=== PATIENT | male | born 1945 | race Caucasian/White ===

== ENCOUNTER 2017-08-30 16:16 | Emergency (ER) | payer MEDICARE, OTHER ==
[2017-08-30 16:55] VITALS: TEMP 98.2
--- NOTE | 2017-08-30 17:23 | ED.PDOC ---
History of Present Illness - General Chief Complaint: General Stated Complaint: Bilateral LLE Edema; denies trauma Time Seen by Provider: 08/30/17 17:21 Source: patient - History of Present Illness Initial Comments: Markos Hill 72 y/o male stated that both his legs are swelled for the last 3 days has history of high blood pressure chronic leg swelling but today got more swelled up denies SOB,chest pains,or fever. Timing/Duration: other - 3 days Severity: moderate Improving Factors: nothing Worsening Factors: nothing Associated Symptoms: other - see hpi Allergies/Adverse Reactions: Allergies NO KNOWN ALLERGY Allergy (Verified 08/30/17 16:55) Home Medications: Ambulatory Orders Furosemide [Lasix] 20 mg PO BID #30 tab 08/30/17 Hctz Unknown Dose 08/30/17 Lisinopril 40 mg PO DAILY@0700 #30 tab 08/30/17 Lisinopril Unknown Dose 08/30/17 Potassium Chloride Tab [K-Dur] 20 meq PO DAILY #30 tab 08/30/17 Review of Systems - Review of Systems Constitutional: States: no symptoms reported EENTM: States: no symptoms reported Respiratory: States: no symptoms reported Cardiology: States: see HPI, edema Gastrointestinal/Abdominal: States: no symptoms reported Genitourinary: States: no symptoms reported Musculoskeletal: States: no symptoms reported Skin: States: no symptoms reported Past Medical History (General) - Patient Medical History Hx Stroke: No Hx Congestive Heart Failure: No Hx Hypertension: Yes Hx Diabetes: No Hx Cancer: No Hx Hepatitis C: No Surgical History: appendectomy, other - hemorroidectomy - Social History Hx Tobacco Use: Yes Hx Chewing Tobacco Use: No Hx Alcohol Use: Yes - Occas Hx Substance Use: No Hx Substance Use Treatment: No Hx Depression: No Feels Threatened In Home Enviroment: No Feels Threatened In a Relationship: No Hx Physical Abuse: No Hx Emotional Abuse: No Hx Suspected Abuse: No - Activities of Daily Living Grooming Ability: Independent Eating (Feeding) Ability: Independent Toileting Ability: Independent Family Medical History - Family History Grandparents Family History: Unknown Hx Family;Other: ABDOMINAL AORTIC ANEURYSM-3.4 cm recently checked followed up every year Mother Living Status: Hx Family;Other: ABDOMINAL AORTIC ANEURYSM Physical Exam - Physical Exam General Appearance: Alert, Comfortable, No apparent distress Eye Exam: bilateral normal Ears, Nose, Throat: hearing grossly normal, normal ENT inspection, normal pharynx Neck: full range of motion, supple Respiratory: chest non-tender, no respiratory distress, decreased breath sounds - bases Cardiovascular/Chest: normal peripheral pulses, no murmur, tachycardia Peripheral Pulses: radial,right: 2+, radial,left: 2+, dorsalis pedis,right: 2+, dorsalis pedis,left: 2+ Gastrointestinal/Abdominal: non tender, soft, no organomegaly Back Exam: no vertebral tenderness Extremity: non-tender, no calf tenderness, pedal edema - 2 + bilaterally Neurologic: no motor/sensory deficits, alert, normal mood/affect, oriented x 3 Skin Exam: normal color, warm/dry Lymphatic: no adenopathy Progress - Progress Progress: 08/30/17 19:56 Vital Signs - 8 hr 08/30/17 08/30/17 16:49 17:53 Temperature 98.2 F Pulse Rate [R 111 H 105 H Arm] Respiratory 20 18 Rate Blood Pressure 135/93 142/81 [R Arm] O2 Sat by Pulse 96 96 Oximetry Laboratory Tests 08/30/17 08/30/17 08/30/17 18:10 18:10 18:10 WBC 6.4 RBC 4.35 L Hgb 12.4 L Hct 37.7 L MCV 86.7 MCH 28.5 MCHC 32.8 L RDW 15.4 H Plt Count 411 H MPV 6.3 L Absolute Neuts (auto) 3.90 Absolute Lymphs (auto) 1.90 Absolute Monos (auto) 0.40 Absolute Eos (auto) 0.10 Absolute Basos (auto) 0.10 Neutrophils % 61.9 Lymphocytes % 29.7 Monocytes % 6.1 Eosinophils % 1.4 Basophils % 0.9 D-Dimer, Quantitative 344 H* Sodium 139 Potassium 3.8 Chloride 106 Carbon Dioxide 28 Anion Gap 8.8 L BUN 15 Creatinine 1.00 BUN/Creatinine Ratio 15.0 Random Glucose 88 Serum Osmolality 277.8 Uric Acid Calcium 8.9 Total Bilirubin 0.3 AST 31 ALT 23 Alkaline Phosphatase 69 Troponin I B-Natriuretic Peptide Serum Total Protein 7.1 Albumin 3.3 Globulin 3.8 H Albumin/Globulin Ratio 0.9 L 08/30/17 08/30/17 18:10 19:00 WBC RBC Hgb Hct MCV MCH MCHC RDW Plt Count MPV Absolute Neuts (auto) Absolute Lymphs (auto) Absolute Monos (auto) Absolute Eos (auto) Absolute Basos (auto) Neutrophils % Lymphocytes % Monocytes % Eosinophils % Basophils % D-Dimer, Quantitative Sodium Potassium Chloride Carbon Dioxide Anion Gap BUN Creatinine BUN/Creatinine Ratio Random Glucose Serum Osmolality Uric Acid 6.5 Calcium Total Bilirubin AST ALT Alkaline Phosphatase Troponin I 0.05 B-Natriuretic Peptide 1800.0 H* Serum Total Protein Albumin Globulin Albumin/Globulin Ratio - EKG/XRAY/CT EKG: Sinus, Tachy, nonspecific ST T wave Chg Comments: heart rate 106;possible left atrial enlargement Departure - Departure Clinical Impression: Pedal edema CHF (congestive heart failure) Qualifiers: Congestive heart failure type: unspecified congestive heart failure type Congestive heart failure chronicity: unspecified congestive heart failure chronicity Qualified Code(s): I50.9 - Heart failure, unspecified Disposition: Discharge to Home or Self Care Condition: Fair Departure Forms: ED Discharge - Pt. Copy, Patient Portal Self Enrollment Instructions: DI for Heart Failure, How to [place] With Heart Failure, Why It Is Important to Quit Smoking If You Have Heart Failure, Heart Failure Prescriptions: Furosemide [Lasix] 20 mg PO BID #30 tab Lisinopril 40 mg PO DAILY@0700 #30 tab Potassium Chloride Tab [K-Dur] 20 meq PO DAILY #30 tab Home Medications: Ambulatory Orders Furosemide [Lasix] 20 mg PO BID #30 tab 08/30/17 Hctz Unknown Dose 08/30/17 Lisinopril 40 mg PO DAILY@0700 #30 tab 08/30/17 Lisinopril Unknown Dose 08/30/17 Potassium Chloride Tab [K-Dur] 20 meq PO DAILY #30 tab 08/30/17 Additional Instructions: NEED TO FOLLOW UP [facility] CALL FOR APPOINTMENT TOMORROW AM-2016
--- NOTE | 2017-08-30 19:20 | US ---
PROCEDURE: Venous,Lower Extremity RT CLINICAL HISTORY and INDICATION: Right lower extremity swelling COMPARISON: None. TECHNIQUE: Goncalves scale imaging with duplex interrogation of the right and left lower extremity venous system was performed and multiple static images were obtained. FINDINGS: Utilizing compression and augmentation, there is no deep venous thrombus in the common femoral, superficial femoral or popliteal veins. The posterior tibial and deep peroneal veins are patent and compressible. . The greater saphenous vein at the saphenofemoral junction is patent and compressible. There is no visualization of any subcutaneous fluid collections. There is no visualization of any fluid collections in the bilateral popliteal fossa. There is no evidence of reactive or pathological lymphadenopathy in the evaluated bilateral lower extremity. IMPRESSION: No deep venous thrombosis of the bilateral lower extremity. Location of Interpretation: [id number] Electronically signed by: Jourdan Em MD 08/30/2017 7:19 PM CDT Workstation: [id number]
--- NOTE | 2017-08-30 19:25 | US ---
PROCEDURE: Venous,Lower Extremity RT CLINICAL HISTORY and INDICATION: Right lower extremity swelling COMPARISON: None. TECHNIQUE: Goncalves scale imaging with duplex interrogation of the right and left lower extremity venous system was performed and multiple static images were obtained. FINDINGS: Utilizing compression and augmentation, there is no deep venous thrombus in the common femoral, superficial femoral or popliteal veins. The posterior tibial and deep peroneal veins are patent and compressible. . The greater saphenous vein at the saphenofemoral junction is patent and compressible. There is no visualization of any subcutaneous fluid collections. There is no visualization of any fluid collections in the bilateral popliteal fossa. There is no evidence of reactive or pathological lymphadenopathy in the evaluated bilateral lower extremity. IMPRESSION: No deep venous thrombosis of the bilateral lower extremity. Location of Interpretation: [id number] Electronically signed by: Jourdan Em MD 08/30/2017 7:19 PM CDT Workstation: [id number]
--- NOTE | 2017-08-30 19:25 | US ---
PROCEDURE: Venous,Lower Extremity RT CLINICAL HISTORY and INDICATION: Right lower extremity swelling COMPARISON: None. TECHNIQUE: Goncalves scale imaging with duplex interrogation of the right and left lower extremity venous system was performed and multiple static images were obtained. FINDINGS: Utilizing compression and augmentation, there is no deep venous thrombus in the common femoral, superficial femoral or popliteal veins. The posterior tibial and deep peroneal veins are patent and compressible. . The greater saphenous vein at the saphenofemoral junction is patent and compressible. There is no visualization of any subcutaneous fluid collections. There is no visualization of any fluid collections in the bilateral popliteal fossa. There is no evidence of reactive or pathological lymphadenopathy in the evaluated bilateral lower extremity. IMPRESSION: No deep venous thrombosis of the bilateral lower extremity. Location of Interpretation: [id number] Electronically signed by: Jourdan Em MD 08/30/2017 7:19 PM CDT Workstation: [id number]
[2017-08-30] MEDS ORDERED: FUROSEMIDE 40 MG TAB PO ONE (19:57)
[2017-08-30] MEDS ORDERED: BUMETANIDE TAB 2 MG TAB PO SCH (20:00)
[2017-08-30 20:22] VITALS: BP 145/92; O2SAT 92
== END 2017-08-30 20:22 | disposition home or self-care (01) ==
LOC: ER 16:16
DX: R60.0 Localized edema (principal); I11.0 Hypertensive heart disease with heart failure; I50.9 Heart failure, unspecified; Z87.891 Personal history of nicotine dependence; Z79.899 Other long term (current) drug therapy

== ENCOUNTER 2018-11-22 15:09 | Inpatient (IN) | payer MEDICARE, OTHER ==
[2018-11-22] MEDS ORDERED: FUROSEMIDE INJ 40 MG/4 ML VIAL IV ONE ×2 (15:35→22:11)
[2018-11-22] MEDS ORDERED: metOLazone 2.5 MG TAB PO ONE ×2 (15:35→22:10)
[2018-11-22] MEDS ORDERED: IPRATROPIUM/ALBUTEROL 3 ML VIAL NEB ONE (15:36)
--- NOTE | 2018-11-22 16:04 | RAD ---
EXAM DESCRIPTION: XR CHEST 2 VIEWS CLINICAL HISTORY: Shortness of breath. Edema COMPARISON: None TECHNIQUE: PA/lateral FINDINGS: Cardiomegaly. Tortuous atherosclerotic aorta. Lungs are hyperinflated related to COPD. Interstitial edema in the mid to lower lung zones with bilateral small pleural effusions blunting the posterior costophrenic angles IMPRESSION: Congestive heart failure with interstitial edema bases and small effusions COPD Electronically signed by: Tenzin Felix MD 11/22/2018 4:03 PM MI[employer]EC[employer] PROFESSOR
--- NOTE | 2018-11-22 17:32 | ED.PDOC ---
History of Present Illness - General Chief Complaint: Respiratory Problem Stated Complaint: SOB, wheezing, cough, ble swelling Time Seen by Provider: 11/22/18 15:11 Source: patient Exam Limitations: no limitations - History of Present Illness Initial Comments: the patient is a 73-year-old male with a history of congestive heart failure presenting with what appears to be another CHF exacerbation. The patient has had 3-5 days of increasing fluid retention in his lower extremities as well as increasing abdominal girth. About 2 days ago he started developing increasing shortness of breath and now he cannot lie back flat without significant shortness of breath. When sitting upright in his oxygen saturations are around 93% however when lying back he does drop down to around 85%. The patient does have significant palpable ascites and 3+ edema to bilateral lower extremities. He does also have some acral cyanosis to his lower extremities which is a long-term problem for him. he has had a runny nose and some mild congestion. His thinks that he might of had a low-grade fever yesterday but they did not check. No fever today. No body aches. No headache. No productive cough. Timing/Duration: other - 3-5 days Severity: moderate Improving Factors: nothing Worsening Factors: nothing Associated Symptoms: cough, malaise, shortness of breath Allergies/Adverse Reactions: Allergies NO KNOWN ALLERGY Allergy (Verified 11/22/18 15:25) Home Medications: Ambulatory Orders Aspirin [Aspirin Adult Low Dose] 81 mg PO DAILY 11/22/18 Atorvastatin Calcium [Lipitor] 20 mg PO DAILY 11/22/18 Carvedilol 12.5 mg PO BID 11/22/18 Furosemide [Lasix] 80 mg PO DAILY 11/22/18 Lisinopril 5 mg PO DAILY 11/22/18 Methocarbamol 500 mg PO BID PRN 11/22/18 Review of Systems - Review of Systems Constitutional: States: malaise EENTM: States: nose congestion Respiratory: States: cough, short of breath, wheezing Cardiology: States: edema Gastrointestinal/Abdominal: States: no symptoms reported Genitourinary: States: no symptoms reported Musculoskeletal: States: no symptoms reported Skin: States: no symptoms reported Neurological: States: no symptoms reported Endocrine: States: no symptoms reported All other Systems: No Change from Baseline Past Medical History (General) - Patient Medical History Hx Stroke: No Hx Congestive Heart Failure: Yes Hx Hypertension: Yes Hx Diabetes: No Hx Cancer: No Hx Hepatitis C: No Surgical History: tonsillectomy - Vaccination History Hx Influenza Vaccination: Yes - 2018 Hx Pneumococcal Vaccination: No - Social History Hx Tobacco Use: Yes Hx Chewing Tobacco Use: No Hx Alcohol Use: Yes - Occas Hx Substance Use: No Hx Substance Use Treatment: No Hx Depression: No Hx Physical Abuse: No Hx Emotional Abuse: No Hx Suspected Abuse: No Family Medical History - Family History Grandparents Family History: Unknown Hx Family;Other: ABDOMINAL AORTIC ANEURYSM-3.4 cm recently checked followed up every year Mother Living Status: Hx Family;Other: ABDOMINAL AORTIC ANEURYSM Physical Exam - Physical Exam General Appearance: Alert, Other - he does have some increased work of breathing Eye Exam: bilateral normal Ears, Nose, Throat: hearing grossly normal, nasal congestion Neck: full range of motion, supple Respiratory: no respiratory distress, accessory muscle use - ild, other - mild bibasilar rales. Scattered wheezing. Cardiovascular/Chest: regular rate, rhythm Peripheral Pulses: radial,right: 2+, radial,left: 2+, dorsalis pedis,right: 1+, dorsalis pedis,left: 1+ Gastrointestinal/Abdominal: soft, other - significant ascites Rectal Exam: deferred Back Exam: normal inspection, no CVA tenderness Extremity: non-tender, normal capillary refill, pedal edema - 3+ to bilateral lower extremities Neurologic: practice clinician II-XII nml as tested, alert, normal mood/affect, oriented x 3 Skin Exam: normal color - with the exception of the acral cyanosis of the feet Comments: Vital Signs - 24 hr 11/22/18 11/22/18 11/22/18 15:16 16:05 16:15 Temperature 98.5 F Pulse Rate 89 Pulse Rate [ 86 84 Left Radial] Respiratory 26 H 20 20 Rate Blood Pressure 116/74 111/73 [Left Arm] O2 Sat by Pulse 93 L 100 97 Oximetry Progress - Progress Progress: 11/22/18 17:36 the patient is a 73-year-old presenting with what appears to be in acute CHF exacerbation. He does also have some COPD and has received a breathing treatment. He has failed outpatient oral therapy for diuresis. He has responded to some IV Lasix and oral metolazone here. he has been placed on oxygen as he does become hypoxic intermittently. He may yet need lower extremity compression to help move off some of the edema. Admit for further care. [facility] - Results/Orders Results/Orders: 11/22/18 15:36 Telemetry .CONTINUOUS 11/22/18 15:45 EKG STAT Laboratory Results - last 24 hr 11/22/18 11/22/18 11/22/18 15:14 15:14 16:30 WBC 6.4 RBC 4.51 L Hgb 11.8 L Hct 37.4 L MCV 82.9 MCH 26.1 L MCHC 31.5 L RDW 16.4 H Plt Count 395 MPV 6.6 L Absolute Neuts (auto) 4.10 Absolute Lymphs (auto) 1.70 Absolute Monos (auto) 0.50 Absolute Eos (auto) 0.00 Absolute Basos (auto) 0.00 Neutrophils % 64.5 Lymphocytes % 26.5 Monocytes % 7.5 Eosinophils % 0.8 L Basophils % 0.7 Sodium 137 Potassium 4.0 Chloride 102 Carbon Dioxide 26 Anion Gap 13.0 BUN 30 H Creatinine 1.54 H BUN/Creatinine Ratio 19.5 Random Glucose 110 H Serum Osmolality 280.6 Calcium 8.6 Total Bilirubin 0.5 AST 93 H ALT 85 H Alkaline Phosphatase 132 H Creatine Kinase 220 H* CK-MB (CK-2) 10.7 H* CK-MB (CK-2) % 4.86 H Troponin I 0.06 H B-Natriuretic Peptide 2090.0 H* Serum Total Protein 7.2 Albumin 3.2 Globulin 4.0 H Albumin/Globulin Ratio 0.8 L Urine Color Yellow Urine Appearance Clear Urine pH 5.5 Ur Specific [place] 1.025 Urine Protein >=300 H Urine Glucose (UA) Negative Urine Ketones Negative Urine Blood Negative Urine Nitrite Negative Urine Bilirubin Negative Urine Urobilinogen 1.0 Ur Leukocyte Esterase Negative Urine RBC 0 Urine WBC 0 Ur Epithelial Cells 0-1 Amorphous Sediment Trace Urine Bacteria 0 chest x-ray is consistent with congestive heart failure showing pleural effus ions. EKG shows a heart rate of 86 bpm there is a normal sinus rhythm. Mild left atrial dilation. Normal axis. Borderline QT interval. EKG is consistent with the EKG from August 2017. No acute ST segment changes immediately concerning for ischemia. Departure - Departure Clinical Impression: Acute exacerbation of congestive heart failure Qualifiers: Heart failure type: unspecified Qualified Code(s): I50.9 - Heart failure, unspecified Disposition: Admit Patient Home Medications: Ambulatory Orders Aspirin [Aspirin Adult Low Dose] 81 mg PO DAILY 11/22/18 Atorvastatin Calcium [Lipitor] 20 mg PO DAILY 11/22/18 Carvedilol 12.5 mg PO BID 11/22/18 Furosemide [Lasix] 80 mg PO DAILY 11/22/18 Lisinopril 5 mg PO DAILY 11/22/18 Methocarbamol 500 mg PO BID PRN 11/22/18 Decision To Admit - Decistion To Admit Decision to Admit Reason: Medical Nature Decision to Admit Date: 11/22/18 Decision to Admit Time: 17:38
--- NOTE | 2018-11-22 18:24 | HP ---
SUPERVISING PHYSICIAN: Nacho العلي MD CHIEF COMPLAINT: Shortness of breath, wheezing, coughing bilateral lower extremity swelling. HISTORY OF PRESENT ILLNESS: Mr. Hill is a 73 year-old male patient who has a history of congestive heart failure. He presented to the Emergency Room today with an exacerbation. He noted over the last 3 to 5 days he has had increasing edema to his lower extremities as well as his abdomen. He also notes about 2 days ago he started having some increasing shortness of breath and unable to lie flat, without any significant shortness of breath. It was noted in the Emergency Room when he was sitting upright, his oxygen saturations were around 93% but when he was lying they would drop down to around 85%. He was denying any chest pain. Laboratory studies showed he had a BNP of 2,090, troponin was slightly bumped at 0.06. Again, the patient was denying chest pains and his EKG completed showed he was in a sinus rhythm at [address] segment changes concerning for ischemic. When compared to an EKG in August 2017, no specific changes. He reports that 2 days ago he started doubling his Lasix, taking up to 160 per day with minimal results His chest x-ray showed congestive heart failure with interstitial edema and small effusions and chronic obstructive pulmonary disease changes. He is a chronic smoker, smokes up to half pack a day, has for well over 60 years. He also notes that he does drink alcohol on a fairly regular occasions, only beer. His labs showed he had a creatinine at 1.54 and review of old charts show that his creatinine is usually around 1.0. Liver functions were also showing elevation of AST, ALT and alkaline phosphatase. Urinalysis showed greater than 300 of protein, otherwise within normal limits. Vital signs on admission, he was mildly tachycardiac at 111, hypertensive with blood pressure of 135/93 but saturation 96% on room air. At rest when lying down, he had desaturation into the mid 80s. He was showing to be afebrile and at that point was given 40 of IV Lasix as well as oral Zaroxolyn. Dr. Barksdale is now requesting that the patient be admitted for acute on chronic exacerbation of congestive heart failure for further cardiac monitoring and evaluation. He is admitted in stable condition. PAST MEDICAL HISTORY: 1. Congestive heart failure first diagnosed in 2016 with no ehrlichiosis available to review on admission. 2. Hypertension. 3. Chronic obstructive pulmonary disease. 4. Triple AAA aneurysm, being followed every 6 months by his primary care physician and reported measures around 3.4 cm. PAST SURGICAL HISTORY: 1. Hemorrhoidectomy. 2. Tonsillectomy and adenoidectomy. CURRENT MEDICATIONS: 1. Methocarbamol 500 mg b.i.d. as needed. 2. Lisinopril 5 mg daily. 3. Lasix 80 mg daily. 4. Carvedilol 12.5 mg b.i.d. 5. Lipitor 20 mg daily. 6. Aspirin 81 mg daily. ALLERGIES: No known drug allergies. FAMILY HISTORY: Father at age 75 from advanced age. Mother from aortic aneurysm at age 69. He has one brother who is healthy. He has a sister who is healthy and he has one son who is healthy. 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 He is an [employer], 3 years, [employer]. He is . He currently lives in [place]. He does note he smokes cigarettes, half-pack a day and has for well over 60 years. He drinks beer on a fairly regular occasion. He denies any illicit drug use. REVIEW OF SYSTEMS: CONSTITUTIONAL: Denies any fevers, chills or unintentional weight loss. HEENT: Positive for nasal congestion, negative for sore throat, earache, vision changes RESPIRATORY: Positive for cough, nonproductive, shortness of breath, wheezing, orthopnea. CARDIOVASCULAR: Positive for worsening peripheral edema and exertional dyspnea and orthopnea. Denies chest pain, syncopal episodes or palpitations. GASTROINTESTINAL: Negative for nausea, vomiting, diarrhea or constipation, abdominal pains. GENITOURINARY: Negative for dysuria, hematuria, polyuria or urinary symptoms. NEUROLOGICAL: Negative for seizures, ataxia, vision changes, dizziness or other neurological symptoms. PHYSICAL EXAMINATION: VITAL SIGNS: Temperature 98.2, pulse 111, blood pressure 135/93, respirations 20, saturation 96% on room air at rest, sitting up on room air there times saturation is down to 85%. Admission weight 90.8 kg. GENERAL: The patient is alert on admission to the medical/surgical floor. The patient appears to be in no acute distress. His is showing some increased work of breathing, especially when talking but he is able to talk in complete sentences. HEENT: Tympanic membranes are clear bilateral. Oropharynx is pink and moist without any lesions. There was notable nasal congestion bilaterally. NECK: Supple with full range of motion. No notable jugular venous distention. CHEST: Lungs notable for bibasilar rales and some scattered wheezing. CARDIOVASCULAR: Regular rate and rhythm without appreciable murmurs, gallops, or rubs. ABDOMEN: Soft, distended with notable ascites but non-tender. Positive bowel sounds. EXTREMITIES: 3+ pedal edema in bilateral lower extremities. NEUROLOGIC: Cranial nerves II through XII grossly intact. Facial features are symmetrical. Extraocular movement was negative. No notable nystagmus. He is alert and oriented x 3. LABORATORY: White count 6,400, hemoglobin 11.8, hematocrit 37.4, platelet count 395,000, differential showed to be without a left shift. Chemistries show normal electrolytes with potassium of 4, sodium 137, BUN 30, creatinine 1.54, calcium 8.6, magnesium 2.0. Liver functions showed normal bilirubin with an elevated AST at 93, ALT of 85, alkaline phosphatase 132. CPK was elevated at 220 with a troponin of 0.06, BNP elevated at 2090. Urinalysis showed greater than 300 protein. MICROBIOLOGY: Influenza A and B by PCR was negative. RADIOLOGY: Chest x-ray, 2-view chest per radiology interpretation shows congestive heart failure with interstitial edema in the bases and small effusions and chronic obstructive pulmonary disease changes. ASSESSMENT: 1. Acute on chronic congestive heart failure exacerbation with concerns for developing pulmonary edema failing to respond to oral diuresis with elevated BNP and increasing peripheral edema. 2. Hypertension. 3. Chronic obstructive pulmonary disease with moderate exacerbation probably due to underlying congestive heart failure with no signs of pneumonia or underlying infection. 4. History of aortic aneurysm that measures 3.4 cm being followed by his primary care physician every 6 months. 5. Chronic nicotine addiction. 6. Renal insufficiency possibly due to aggressive diuresis at home with Lasix versus some aggressive exacerbation from questionable urinary retention. 7. Elevated troponin without any evidence of acute changes on EKG and patient being without any chest pain, probably due to his decreased renal function along with exacerbation of chronic obstructive pulmonary disease. PLAN: The patient is going to be admitted for exacerbation of congestive heart failure for a little more aggressive diuresis. I will give another 40 of Lasix tonight with 5 of Zaroxolyn. Given I am going to diurese him fairly aggressively, I discussed putting a Palomo catheter in and measure his I&Os pretty strict and insure that he is not having any urinary retention. In regards to his renal function and concerns for urinary retention, again will place bladder catheter just to insure he is not having retention. We will go and put him on Lasix 60 b.i.d. for the first 24 hours along with Zaroxolyn in the morning. Will give him some potassium tonight and continue with 40 mg daily. Will put him on DVT prophylaxis per protocol. Will resume his home medications once those have been updated and verified. He is already on an moreno inhibitor and a beta agnes. He does have an echocardiogram that apparently was done at the [facility] which I am not sure if we can get a copy of this but it would be helpful. Also, this admission was approved through the [facility] system. Will anticipate his length of stay to be at least 2 to 3 days and while he is here we will also put him on fluid restriction less than 1500 cc per day. Will hold off on any IV fluids at this point and will monitor his vital signs. Should he show any drop in his blood pressure, he could possibly be developing some intravascular dehydration from aggressive diuresis, certainly we will need to start him on low maintenance fluids. He will be on oxygen and cardiac telemetry. We plan to repeat his troponin in them morning as well but he is not having any complaints of chest pain. I suspect his troponin is from his renal function as well as his exacerbation of congestive heart failure. Until we can transition him to outpatient management, will continue to monitor and treat as needed. #[id number] [facility]
[2018-11-22] MEDS ORDERED: ACETAMINOPHEN 325 MG TAB PO PRN (19:26)
[2018-11-22] MEDS ORDERED: ALBUTEROL SULFATE 2.5 MG/3 ML VIAL NEB PRN (19:26)
[2018-11-22] MEDS ORDERED: SODIUM CHLORIDE 0.9% (FLUSH) 10 ML SYG IV PRN (19:26)
[2018-11-22] MEDS ORDERED: NITROGLYCERIN 0.4 MG 25 EA TAB SL PRN (19:26)
[2018-11-22] MEDS ORDERED: ONDANSETRON INJ 4 MG/2 ML VIAL IV PRN (19:26)
[2018-11-22] MEDS: IPRATROPIUM/ALBUTEROL 3 ML VIAL INH SCH (20:25)
[2018-11-22] MEDS: IV SET AND CAP CHANGE INJ INJ SCH (21:00)
[2018-11-22] MEDS ORDERED: POTASSIUM CHLORIDE 20 MEQ TAB PO ONE (22:12)
[2018-11-22] MEDS ORDERED: NON-FORMULARY MEDICATION 1 EA MIS (Methocarbamol [Methocarbamol] 500 MG) PO PRN (22:13)
[2018-11-22] MEDS: CARVEDILOL 12.5 MG TAB PO SCH (22:30)
[2018-11-22] MEDS: ALPRAZolam 0.25 MG TAB PO PRN (23:58)
--- NOTE | 2018-11-23 07:07 | RAD ---
EXAM DESCRIPTION: Chest,2 Views CLINICAL HISTORY:73 years Male, CHF Comparison: November 22, 2018 FINDINGS: Mild bibasilar opacities and possible small bilateral pleural effusions. Enlarged cardiac silhouette, unchanged. No pneumothorax. No acute osseous abnormality. Soft tissues are unremarkable. IMPRESSION: Unchanged enlarged chronic silhouette with bibasilar opacities representing pulmonary edema, atelectasis or pneumonia. Possible small bilateral pleural effusions. Electronically signed by: Osito Nielsen MD 11/23/2018 7:06 AM [facility]
[2018-11-23] MEDS ORDERED: POTASSIUM CHLORIDE 10 MEQ TAB PO ONE (07:46)
[2018-11-23] MEDS: IPRATROPIUM/ALBUTEROL 3 ML VIAL INH SCH (07:59)
[2018-11-23] MEDS: POTASSIUM CHLORIDE 20 MEQ TAB PO SCH (08:31)
[2018-11-23] MEDS ORDERED: FUROSEMIDE INJ 100 MG/10 ML VIAL IV SCH (09:00)
[2018-11-23] MEDS ORDERED: METHOCARBAMOL 750 MG TAB PO ONE (09:32)
[2018-11-23] MEDS ORDERED: METHOCARBAMOL 750 MG TAB ONE (09:34)
[2018-11-23] MEDS: ASPIRIN (ENTERIC COATED) 81 MG TAB PO SCH (09:38)
[2018-11-23] MEDS: metOLazone 2.5 MG TAB PO SCH (09:38)
[2018-11-23] MEDS: ATORVASTATIN 20 MG TAB PO SCH ×2 (09:39→20:52)
[2018-11-23] MEDS: LISINOPRIL 10 MG TAB PO SCH (09:39)
[2018-11-23] MEDS: CARVEDILOL 12.5 MG TAB PO SCH ×2 (09:40→20:52)
[2018-11-23] MEDS: ENOXAPARIN SODIUM 40 MG/0.4 ML SYG SUBCU SCH (09:44)
[2018-11-23] MEDS: IPRATROPIUM/ALBUTEROL 3 ML VIAL NEB SCH ×3 (12:00→20:20)
[2018-11-23] MEDS ORDERED: POTASSIUM CHLORIDE 20 MEQ TAB PO ONE (17:18)
[2018-11-23] MEDS: FUROSEMIDE 40 MG TAB PO SCH (20:35)
--- NOTE | 2018-11-23 21:15 | PN ---
DATE: 11/23/18 SUPERVISING PHYSICIAN: Nacho العلي M.D. SUBJECTIVE: The patient is lying in bed. He complains of leg cramping but otherwise feels much improved since his admission. We discussed smoking cessation as well as his plan of care. 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 We discussed that we may give him some pain medication and followup with a pain management doctor. His also ask if he was diabetic as he was told he was at this [employer] physical. OBJECTIVE: VITAL SIGNS: Temperature 98, heart rate 80, blood pressure 121/80, respiratory rate is 20 and O2 sat is 95% on 2 liters nasal cannula. Intake was 650 mL. His output was 6300 for a negative balance of -5,650 mL. RESPIRATORY: Essentially clear to auscultation bilaterally. There are a few scattered crackles but very faint in all lung mata. CARDIAC: Regular rate and rhythm. GASTROINTESTINAL: Abdomen is soft, nondistended, non-tender. Bowel sounds are positive. EXTREMITIES: No clubbing, cyanosis or edema. NEUROLOGIC: He is awake, alert and oriented times three. LABORATORY: WBCs are 6.9, hemoglobin 12.9, hematocrit 41.8. Sodium 134, potassium 4.4, chloride 20, BUN 39, creatinine 1.39. Repeat metabolic panel this afternoon showed sodium 134 with potassium 3.6, chloride 92, carbon dioxide 33, BUN 40, creatinine 1.5. Chest x-ray shows unchanged enlarged chronic silhouette with bibasilar opacities representing pulmonary edema, atelectasis or pneumonia. Possible small bilateral pleural effusions. All other labs and films have been reviewed via the EMR. ASSESSMENT: 1. Acute on chronic congestive heart failure with concerns for developing pulmonary edema failing to respond to oral diuresis with elevated BNP and increased peripheral edema that is now resolving. His CHF is of unknown etiology without current echocardiogram to review. 2. Hypertension. 3. Chronic obstructive pulmonary disease with moderate exacerbation probably due to underlying congestive heart failure with no signs of pneumonia or underlying infection. 4. History of aortic aneurysm that measures 3.4 cm being followed by his primary care physician every 6 months. 5. Chronic nicotine addiction. 6. Renal insufficiency most likely due to aggressive diuresis. A contributing factor may be questionable urinary retention. 7. Elevated troponin without any evidence of acute changes on EKG and patient being without chest pain, probably due to his exacerbation of congestive heart failure as well as his chronic obstructive pulmonary disease and decreased renal function. PLAN: We will continue present supportive care. He has diuresed over 5 liters overnight and I have changed his Lasix from IV to p.o. Will continue with his Palomo catheter overnight. Tomorrow morning I have ordered bladder training and hopefully we can discontinue that tomorrow. I have also given him an extra dose of potassium this afternoon as his potassium has dropped quite a bit after aggressive diuresis. I have also ordered some Nathalie for pain and I have consulted Director Of Environmental Services. The patient needs to be set up with [facility] as he sees the [facility] in [place]. During acute illnesses or exacerbation of his chronic diseases, he needs a local doctor available for him as it would be difficult in some instances for him to travel to [place] for some of his acute problems. I will order a hemoglobin A1c with lab in the morning. Will continue to monitor him closely and follow as needed. #[id number] [facility]
[2018-11-24] MEDS: ALPRAZolam 0.25 MG TAB PO PRN ×2 (02:13→20:53)
[2018-11-24] MEDS: POTASSIUM CHLORIDE 20 MEQ TAB PO SCH (07:39)
[2018-11-24] MEDS ORDERED: TIOTROPIUM INHALER INH SCH (08:00)
[2018-11-24] MEDS: IPRATROPIUM/ALBUTEROL 3 ML VIAL NEB SCH ×4 (08:18→20:00)
[2018-11-24] MEDS: LISINOPRIL 10 MG TAB PO SCH (09:52)
[2018-11-24] MEDS: CARVEDILOL 12.5 MG TAB PO SCH ×2 (09:52→20:50)
[2018-11-24] MEDS: FUROSEMIDE 40 MG TAB PO SCH ×2 (09:53→17:29)
[2018-11-24] MEDS: ASPIRIN (ENTERIC COATED) 81 MG TAB PO SCH (09:53)
[2018-11-24] MEDS: ENOXAPARIN SODIUM 40 MG/0.4 ML SYG SUBCU SCH (09:54)
[2018-11-24] MEDS: metOLazone 2.5 MG TAB PO SCH (09:55)
[2018-11-24] MEDS ORDERED: TEMAZEPAM 15 MG CAP PO PRN (09:56)
[2018-11-24] MEDS ORDERED: ALBUTEROL INHALER 64 PUFF/8GM INH PRN (09:56)
--- NOTE | 2018-11-24 10:41 | PN ---
SUPERVISING PHYSICIAN: Nacho العلي M.D. DATE: 11/24/18 SUBJECTIVE: The patient is sitting on chair in his hospital room. He says he feels more exhausted than he did yesterday. He did say the pain medications did help, but he is having trouble sleeping and asked if he is going to be sent home on a rescue inhaler as he was quite worried that he would not have one on discharge. Otherwise, he denies nausea, vomiting, diarrhea, chest pain or wheezing. He continues to have some shortness of breath with exertion. He also complained that there is something in the bottom of his foot. It looks like he has some sort of splinter or foreign object in the ball of his foot and we will try to get that taken care of today. OBJECTIVE: VITAL SIGNS: Temperature 98.4. Heart rate 83. Blood pressure 112/72. Respiratory rate 20. O2 saturation 91% on room air. I&Os: Since admission, he has diuresed approximately 10,000 mL and intake has been 2,000 mL for a negative balance of 8,000. On admission, he was 88.9 kg and today, he is 82.7 kg. RESPIRATORY: Diminished breath sounds throughout. He does have some scattered expiratory wheezing, but improved since yesterday. CARDIAC: Regular rate and rhythm. GASTROINTESTINAL: Abdomen is soft, nondistended, nontender. EXTREMITIES: No clubbing or cyanosis. He does have what appears to be a splinter in the ball of his right foot. It is quite tender around it. Both of his feet are very erythematous when he is sitting down. When he is lying with his feet elevated, their color becomes better. His pulses are at about +1 bilaterally. NEUROLOGIC: He is awake, alert and oriented times three. LABORATORY: Sodium 134, potassium 4, chloride 94, carbon dioxide 31, BUN 39, creatinine improved to 1.32. AST 57, ALT 67, alkaline phosphatase 127, calcium 3.1. Hemoglobin A1c 3.4. WBCs 7.2, hemoglobin 11.6, hematocrit 36.7. He has a normal differential. All other labs and films have been reviewed via the EMR. ASSESSMENT: 1. Acute on chronic congestive heart failure with concerns for developing pulmonary edema. He has improved with IV diuretics as well as oral diuretics. The congestive heart failure is of unknown etiology as we have no current echocardiogram to review. 2. Hypertension. 3. Chronic obstructive pulmonary disease with moderate exacerbation. 4. History of aortic aneurysm that measures 3.4 cm, being followed by his primary care physician. 5. Chronic nicotine addiction. 6. Renal insufficiency, improved. 7. Elevated troponin, may be due to his chronic obstructive pulmonary disease, decreased renal function as well as congestive heart failure. 8. History of elevated liver function tests in a person who drank quite heavily, but stopped about 15 years ago. He said his liver enzymes have always been slightly elevated. 9. Foreign object (large splinter) in ball of right foot. PLAN: We will continue present supportive care. We will discontinue his Palomo catheter today. I will repeat some lab including a BNP in the morning. I will also order a chest x-ray. I will also order a rescue inhaler of albuterol and make sure that respiratory therapy teaches him the correct of the inhaler. I have given him Restoril for sleep at night. He will also need an oxygen home study to see if he qualifies for oxygen. I will also speak with Dr. Martínez in regards to the splinter in the bottom of his foot. This morning, it does not look infected, but we will monitor it closely. We will continue to follow him and treat as appropriate. ADDENDUM: I spoke with Dr. Martínez and he recommended patient be started on an antibiotic for the splinter in his right foot. He also said he would see him in clinic to remove it and to have an outpatient x-ray of the foot prior to appointment. #[id number] [facility]TD[facility]
[2018-11-24] MEDS: DOXYCYCLINE HYCLATE CAP 100 MG CAP PO SCH ×2 (11:49→20:50)
[2018-11-24] MEDS: ATORVASTATIN 20 MG TAB PO SCH (20:50)
[2018-11-24] MEDS: HYDROcodone 5MG/APAP 325MG 1 EA TAB PO PRN (20:53)
--- NOTE | 2018-11-25 07:16 | RAD ---
CHEST 11/25/2018 CLINICAL HISTORY: Congestive heart failure COMPARISON: Chest 11/23/2018 TECHNIQUE: Frontal and lateral Chest. FINDINGS: Cardiac size is normal. Mildly tortuous thoracic aorta. There is no pulmonary vascular congestion. There is minimal right and left lower lobe atelectasis. Possible small focus of left lower lobe pneumonitis. No pleural fluid or pneumothorax. Lungs are hyperinflated. There is a dextroconvex thoracolumbar scoliotic curve. Mild thoracic spondylosis. Unremarkable soft tissues. IMPRESSION: 1. Faint densities within the left lower lobe may represent mild pneumonitis. There is mild bibasilar atelectasis. 2. COPD. Electronically signed by: Emilie Terrazas DO 11/25/2018 7:15 AM [facility]
[2018-11-25] MEDS: POTASSIUM CHLORIDE 20 MEQ TAB PO SCH (07:48)
[2018-11-25] MEDS: ENOXAPARIN SODIUM 40 MG/0.4 ML SYG SUBCU SCH ×2 (08:09→08:12)
[2018-11-25] MEDS: DOXYCYCLINE HYCLATE CAP 100 MG CAP PO SCH ×2 (08:09→21:25)
[2018-11-25] MEDS: metOLazone 2.5 MG TAB PO SCH (08:09)
[2018-11-25] MEDS: LISINOPRIL 10 MG TAB PO SCH (08:09)
[2018-11-25] MEDS: FUROSEMIDE 40 MG TAB PO SCH ×2 (08:09→17:11)
[2018-11-25] MEDS: CARVEDILOL 12.5 MG TAB PO SCH ×2 (08:09→21:25)
[2018-11-25] MEDS: ASPIRIN (ENTERIC COATED) 81 MG TAB PO SCH (08:09)
[2018-11-25] MEDS: IPRATROPIUM/ALBUTEROL 3 ML VIAL NEB SCH ×4 (08:24→19:49)
--- NOTE | 2018-11-25 13:31 | PN ---
SUPERVISING PHYSICIAN: Nacho العلي M.D. DATE: 11/25/18 SUBJECTIVE: The patient is sitting up in his bed. His is at the bedside. He does feel some better, but he still has some shortness of breath with exertion. He also complains of being very tired. His said he dozes off easily. We discussed his discharge plan including seeing Dr. Brooks at [facility] in addition to going to the [place]. He has no complaints of chest pain, nausea, vomiting, diarrhea or constipation. OBJECTIVE: VITAL SIGNS: Afebrile with temperature 97.9. Heart rate 68. Blood pressure 110/74. Respiratory rate 18. O2 saturation 92% on 2 liters nasal cannula. His I&O for his hospital stay is negative 3,255 mL. His admission weight was 88.9 kg and his present weight is 82.7 kg. RESPIRATORY: A few scattered crackles and diminished at the bases. CARDIAC: Regular rate and rhythm. GASTROINTESTINAL: Abdomen is soft, nondistended, nontender. Bowel sounds are positive. EXTREMITIES: No cyanosis, clubbing or edema. LABORATORY: WBC 7.2, hemoglobin 11.7, hematocrit 37.7. Chloride 92, carbon dioxide 33, creatinine slightly worse at 1.64 and BUN is 43. AST 63, BNP 1,390. Chest x-ray shows 1) Faint density in the left lower lobe may represent mild pneumonitis. There is mild bibasilar atelectasis. 2) Chronic obstructive pulmonary disease. All other labs and films have been reviewed via the EMR. ASSESSMENT: 1. Acute on chronic congestive heart failure with concerns for developing pulmonary edema. He has improved with IV diuretics as well as oral diuretics. The congestive heart failure is of unknown etiology as we have no current echocardiogram to review. 2. Hypertension. 3. Chronic obstructive pulmonary disease with moderate exacerbation and concerns for community acquired pneumonia as per chest x-ray. The patient is presently on doxycycline. 4. History of aortic aneurysm that measures 3.4 cm, being followed by his primary care physician. 5. Chronic nicotine addiction. 6. Renal insufficiency, improved. 7. Elevated troponin, may be due to his chronic obstructive pulmonary disease, decreased renal function as well as congestive heart failure. 8. History of elevated liver function tests in a person who drank quite heavily, but stopped about 15 years ago. He said his liver enzymes have always been slightly elevated. 9. Foreign object (large splinter) in ball of right foot. PLAN: We will continue present supportive care. He has voided without difficulty since we discontinued his catheter. I have encouraged and ordered good pulmonary hygiene as there are new concerns for a possible pneumonitis in the left lower lobe per x-ray. He is on doxycycline and we will continue to monitor his clinical response as he may need to be changed to a different antibiotic. Dr. Martínez has agreed to see the patient for the splinter in the bottom of his right foot and I have ordered an x-ray of the right foot as well as a chest x-ray in the morning. I am not sure why his renal function is worsening, it may be due to his diuresis, but I will continue to monitor his intake and output as well as his renal function by ordering labs for tomorrow. He is on his home dosage of Lasix although he usually takes 80 mg in the morning and I have 40 mg of Lasix b.i.d. He will also see Dr. Brooks in followup and I will get his followup appointment prior to discharge. We will continue to monitor the patient closely and follow as needed. #[id number] [facility]
[2018-11-25] MEDS: IV SET AND CAP CHANGE INJ INJ SCH (20:36)
[2018-11-25] MEDS: HYDROcodone 5MG/APAP 325MG 1 EA TAB PO PRN (21:25)
[2018-11-25] MEDS: ATORVASTATIN 20 MG TAB PO SCH (21:25)
[2018-11-26 02:30] VITALS: TEMP 97.9
--- NOTE | 2018-11-26 06:44 | RAD ---
Right foot three view on 11/26/2018 CLINICAL INDICATION: Foreign object in foot, foot pain COMPARISON: None FINDINGS: There is no radiopaque foreign body. Mild hallux valgus deformity of the great toe is noted. There are no fractures. Visualized joints are well aligned. No other bony abnormality is noted. IMPRESSION: No acute bony abnormality. Electronically signed by: Edy Grajeda 11/26/2018 6:43 AM [facility]
--- NOTE | 2018-11-26 06:46 | RAD ---
Chest 2 view on 11/26/2018 CLINICAL INDICATION: Pneumonia COMPARISON: 11/25/2018 FINDINGS: Borderline cardiomegaly is noted. Tortuous aorta is noted. There is minimal left lower lung opacity consistent with atelectasis, scarring or possibly early pneumonia. Lungs are otherwise clear. Pulmonary vascularity is within normal limits. IMPRESSION: No significant change in the appearance of the chest. Electronically signed by: Edy Grajeda 11/26/2018 6:45 AM [facility]
[2018-11-26] MEDS: POTASSIUM CHLORIDE 20 MEQ TAB PO SCH (07:16)
[2018-11-26] MEDS: IPRATROPIUM/ALBUTEROL 3 ML VIAL NEB SCH ×2 (08:26→13:04)
[2018-11-26] MEDS: metOLazone 2.5 MG TAB PO SCH (08:43)
[2018-11-26] MEDS: DOXYCYCLINE HYCLATE CAP 100 MG CAP PO SCH (08:43)
[2018-11-26] MEDS: FUROSEMIDE 40 MG TAB PO SCH (08:44)
[2018-11-26] MEDS: ASPIRIN (ENTERIC COATED) 81 MG TAB PO SCH (08:44)
[2018-11-26] MEDS: LISINOPRIL 10 MG TAB PO SCH (08:44)
[2018-11-26] MEDS: CARVEDILOL 12.5 MG TAB PO SCH (08:44)
[2018-11-26] MEDS: ENOXAPARIN SODIUM 40 MG/0.4 ML SYG SUBCU SCH (08:46)
[2018-11-26 10:16] VITALS: O2SAT 93
[2018-11-26 13:15] VITALS: BP 100/60
--- NOTE | 2018-11-27 16:15 | DS ---
SUPERVISING PHYSICIAN: Nacho العلي MD DISCHARGE DIAGNOSES: ASSESSMENT: 1. Acute on chronic congestive heart failure exacerbation with concerns for developing pulmonary edema. He improved with IV diuretics and then was transitioned to oral diuretics. His congestive heart failure is of unknown etiology with no echocardiogram to review. 2. Chronic obstructive pulmonary disease with moderate exacerbation and concerns for community acquired pneumonia as per chest x-ray. The patient is on Doxycycline. 3. Hypertension. 4. History of aortic aneurysm that measures 3.4 cm being followed by his primary care physician with the [facility] [place]. 5. Chronic nicotine addiction. 6. Renal insufficiency that has improved. . 7. Elevated troponin on admission may be due to chronic obstructive pulmonary disease as well as his decreased renal function as well as his congestive heart failure. 8. History of elevated liver function test in a person who has drank quite heavy but he stopped about 15 years ago. He said his liver enzymes have always been elevated. 9. Foreign object (large splinter) in ball of foot. HISTORY OF PRESENT ILLNESS: Mr. Hill is a 73 year-old male patient who has a history of congestive heart failure. He has only lived in [place] for about a year. He goes to [facility] [place]. He presented to the Emergency Room today on the date of admission with an exacerbation of his congestive heart failure. Three to five days prior to admission he had increasing swelling to his lower extremities as well as his abdomen. About two days prior to admission he had some increasing shortness of breath and was unable to lie flat and had to sleep sitting in a chair. In the Emergency Room, he also had to sit upright and his oxygen saturations was around 93% but when he was lying down it would drop down to 85%. He denied any chest pain. Laboratory studies showed he had a BNP of 2,090, troponin was slightly bumped at 0.06. The patient denied chest pains and his EKG showed he was in normal sinus rhythm at [address] segment changes concerning for ischemia. When compared to an EKG in August of 2017 there were no specific changes. He reported that 2 days prior to admission he started doubling his Lasix, taking up to 160 mg per day. He had minimal results His chest x-ray showed congestive heart failure with interstitial edema and small effusions and chronic obstructive pulmonary disease changes. He is a chronic smoker, smokes up to half pack of cigarettes per day and has for well over 60 years. He previously drank alcohol rather heavily but he quit approximately 15 years ago. He still drinks beer occasionally. His labs showed a creatinine at 1.54 and his baseline is usually about 1. Liver function test also shows an elevation of his AST, ALT and alkaline phosphatase. Urinalysis showed greater than 300 of protein, otherwise within normal limits. Vital signs on admission showed him to be mildly tachycardiac at 111, hypertensive with blood pressure of 135/93 but 02 saturation sitting straight up was 96% on room air. Again, when he was lying down his saturations were in the mid 80s. He was afebrile. In the Emergency Room he was given 40 of IV Lasix as well as oral Zaroxolyn and the patient was admitted for acute on chronic exacerbation of congestive heart failure. He was admitted in stable condition.. HOSPITAL COURSE: He was aggressively diuresed with Lasix and scheduled Zaroxolyn. He actually diuresed the first 24 hours of almost 6 liters. He had a Palomo catheter initially and it was later discontinued without any problems. Initially, there were some concerns for his urinary retention but there were no problems after discontinuing his Palomo. He also had his electrolytes supplemented several times during his hospital stay. It is to be noted that his admission was approved through the [facility] system. His troponin was repeated and it was negative, the patient does not have any complaints of chest pain. He does have some leg cramping but attain, his electrolytes were replaced. He also had some complaints of some chronic back pain. He was given some hydrocodone. He was told that he could not go home on hydrocodone and he would have to have a pain management doctor. There were some concerns that he had diabetes. His hemoglobin A1C was 6.4. His IV Lasix was changed from IV to p.o. and continue with the Zaroxolyn. We also discussed at length that he could go to see Dr. Brooks at [facility] for his acute medical problems and [facility] [place] [facility]. We also discussed at length, smoking cessation as well as discontinuing his alcohol consumption. He complained of some soreness in the ball of his right foot. It appears to have some sort of splinter. I spoke with , General Surgeon, and he felt that he should complete his antibiotics and that he would see him as an outpatient to remove it and he asked that an x-ray be done of the patient's right foot. His vital signs remained stable throughout is stay and he will be discharged home in stable condition with close followup with Dr. Brooks at [facility]. LABORATORY: WBC remained stable during his hospital stay and they were between 6,400 and 7,300 with hemoglobin of 11.8 and hematocrit 37.4 on admission and on discharge it was hemoglobin 15 with hematocrit 39.7. His electrolytes were slightly out of balance during his hospital stay but his sodium is normal today at 136, potassium 3.7, chloride slightly low at 91 with carbon dioxide of 35. BUN 47 and he continues to have a slightly elevated creatinine of 1.42 but I do not have any records of his baseline creatinine. His hemoglobin A1C was 6.4. His AST, ALT and alkaline phosphatase initially were elevated and on discharge today his AST is 65 with ALT of 62 and alkaline phosphatase of 104. BNP yesterday was 1,390. Chest x-ray today shows no significant changes in the appearance of the chest. His foot x-ray shows no acute bony abnormality. DISCHARGE PLAN: The patient will be discharged home in stable condition. He is to followup with Dr. Brooks within the next 1 to 2 weeks at [facility]. He was given an Albuterol rescue inhaler to take home and he was taught how to use it. In addition to his home medications, he also received a prescription for Duoneb as well as Tramadol and doxycycline. After completion of the doxycycline, I recommended that he follow with either Dr. Brooks or Dr. Martínez to remove the foreign object in the ball of his foot. He is to resume his previous activity and diet. He is encouraged to stop smoking and drinking alcoholic beverages. He is to return to the hospital for any problems or complications. DISCHARGE MEDICATIONS: 1. Lisinopril. 2. Atorvastatin. 3. Methocarbamol. 4. Furosemide. 5. Labetalol. 6. Aspirin. 7. Albuterol inhaler. 8. Doxycycline. 9. Duoneb. 10. Tramadol. #[id number] [facility]
== END 2018-11-26 15:22 | disposition home or self-care (01) | DRG 291 ==
LOC: ER 15:09 → MS 18:22 → OBSVTOIN 18:22
PROVIDERS: ADMIT Nurse Practitioner Family; ATTEND Nurse Practitioner Acute Care
DX: I11.0 Hypertensive heart disease with heart failure (principal); J18.9 Pneumonia, unspecified organism; J44.1 Chronic obstructive pulmonary disease with (acute) exacerbation; J44.0 Chronic obstructive pulmonary disease with (acute) lower respiratory infection; I50.9 Heart failure, unspecified; F17.210 Nicotine dependence, cigarettes, uncomplicated; I71.4 Abdominal aortic aneurysm, without rupture; N28.9 Disorder of kidney and ureter, unspecified; S90.851A Superficial foreign body, right foot, initial encounter; W45.8XXA Other foreign body or object entering through skin, initial encounter; Z79.82 Long term (current) use of aspirin

== ENCOUNTER → 2019-02-07 | Outpatient (CLI) | payer OTHER ==
--- NOTE | 2019-02-08 11:45 | CT ---
Procedure: CT LUNG SCREENING Exam Date: 02/07/2019. Ordering Provider: Rajendra Bragg Clinical Indication: PERSONAL HX OF TOBACCO USE 25 pack years. Current smoking status unknown This patient meets eligibility criteria for low-dose CT lung cancer screening. Comparison: Chest radiograph 11/26/2018. Technique: Using a multislice scanner, sequential helical axial imaging was obtained in the thorax, 2.5 mm thickness, 2.5 mm separation, from the level of the thoracic inlet through the lung bases without IV contrast. A low dose protocol was utilized for BMI less than 30: BMI: 23.8. CTDI: 1.75 mGy. 120. kVp. 45 mA. DLP 61.9 mGy centimeters. 2D sagittal and coronal reconstructed images, 6.0 mm thickness, were obtained. This exam was performed according to our departmental dose optimization program which includes use of automated exposure control, adjustment of the mA and/or kV according to patient size and/or use of iterative reconstruction technique. Nodule measurements under 10 mm are given as mean value of 3 axes diameters. FINDINGS: Lungs and large airways: Bilateral emphysematous blebs in a centrilobular distribution, and more prevalent in the upper lung mata. Pleural parenchymal scars in the medial base of the right middle lobe and in the base of the inferior lingula. Subpleural 3 mm solid nodule in the anterolateral base of the right upper lobe on axial sequence 2, image 72. 5 mm nodule versus pleural thickening in the posterior recess of the right lower lobe on image 105. Posterior dependent atelectasis bilateral lower lobes. Pleura and space: Unremarkable. Mediastinum and juanpablo: evaluation limited by low dose technique and lack of IV contrast. No significantly enlarged lymph nodes or soft tissue masses. Heart and great vessels: Atherosclerotic calcification proximal brachiocephalic vessels, thoracic aorta, and coronary arteries. Chest wall, lower neck, axillae: Evaluation also limited by same factors as described above. No significantly enlarged lymph nodes or soft tissue masses. Inhomogeneous enhancement of the thyroid gland. Upper abdomen: Included peritoneal cavity with no stranding or fascial thickening. No free air or fluid. Limited due to low-dose technique. Osseous structures: Evaluation limited by low dose MIP technique. Arthrosis in the right glenohumeral joint. Also bilateral sternoclavicular joints, right first costochondral joint, and in the manubriosternal joint. Minimal thoracic spine spondylosis. No lytic or blastic lesions. IMPRESSION: 5 mm nodule versus focal pleural thickening posterior recess of the right lower lobe. Insignificant 3 mm solid nodule in the right upper lobe. Centrilobular emphysematous changes. [facility] Best Practice recommendations: Please see below for Lung RADS category and FOLLOW-UP.* *CATEGORY 3 - Probably benign (1-2% malignancy probability), short term follow-up suggested. Nodules: Solid nodule(s) 6mm to less than 8mm at baseline, or new 4mm to under 6mm solid nodule. Part solid nodule total diameter 6mm to less than 8mm with solid component less than 6mm, or new less than 6mm total diameter nodule] [ground glass nodule(s) 20mm or greater. FOLLOW-UP: Please return for a Low Dose Chest CT in 6 months for re-evaluation. Electronically signed by: Henri Ocasio MD 02/08/2019 11:42 AM CDT
== END ==
LOC: CT 13:30
PROVIDERS: ATTEND Family Medicine
DX: Z87.891 Personal history of nicotine dependence (principal); R91.1 Solitary pulmonary nodule

== ENCOUNTER 2019-05-23 10:38 | Emergency (ER) | payer OTHER, MEDICARE ==
[2019-05-23] MEDS ORDERED: DEXTROSE 5% 250ML 250 ML ONE (10:57)
[2019-05-23] MEDS ORDERED: EPINEPHrine HCL AMP 1 MG/ML AMP ONE (11:00)
[2019-05-23 14:15] VITALS: TEMP 96.2
[2019-05-23 17:01] VITALS: BP 60/29
--- NOTE | 2019-05-23 17:54 | ED.PDOC ---
History of Present Illness - General Chief Complaint: Cardiac Respiratory Arrest Stated Complaint: CPR in progress Time Seen by Provider: 05/23/19 17:20 Source: EMS Exam Limitations: clinical condition - History of Present Illness Initial Comments: H/O COPD AND CHF. MR. HUNTER WAS BROUGHT TO ER WITH CPR IN PROGRESS (ACTIVE CHEST COMPRESSIONS AND VENTILATIONS). HX PER EMS. EMS WAS CALLED TO HOUSE AND PT MENTIONED HE WAS HAVING TROUBLE BREATHING. EMS APPROPRIATELY EVALUATED AND MOVED HIM TO STRETCHER TO PREPARE TO BRING TO ER. WHEN THEY PLACED PT ON STRETCHER, HE BECAME SUDDENLY UNRESPONSIVE. EMS EVALUATED AND NOTED NO BREATHING OR PULSE, THUS APPROPRIATELY STARTED CPR, PER BLS/ACLS GUIDELINES (CHEST COMPRESSIONS, INTUBATION VENTILATIONS). PT WAS SUCCESSFULLY INTUBATED AND IO LINE PLACED IN THE FIELD. VENTILATIONS AND IVF WERE ADMINISTERED APPROPRIATELY, ALONG WITH COMPRESSIONS. PT LIVES APPOXIMATELY [address] [facility], THUS COMPRESSIONS AND ACLS EPINEPHRINE WERE GIVEN FOR 25 MINUTE DURATION PRIOR TO ER ARRIVAL, WITH NO PULSE PRESENTING. PT WAS TRANSFERRED INTO ER WITH COMPRESSIONS CONTINUOUS. CPR WAS ADMINISTERED IN ER FOR 45 MINUTES WITH 2 MINUTE PULSE CHECK INTERVALS. APPROPRIATE REPEATED ROUNDS OF ACLS EPINEPHRINE MEDICATIONS WERE ADMINISTERED. MONITOR SHOWED PEA THUS NO SHOCK WAS INDICATED. PT HAD TRANSIENT PULSE WHICH QUICKLY ABATED IN 20 - 30 SECONDS, AFTER WHICH COMPRESSIONS AND ACLS WERE AGAIN RESUMED. U/S CONFIRMED BARELY ANY SPONTANEOUS MOVEMENT OF CARDIAC MUSCLE, YET NOT PRODUCTIVE ENOUGH TO CAUSE CIRCULATION OF BLOOD/PERFUSION. FINGER STICK GLUCOSE WAS NOTED TO BE < 50 THUS AMP OF D50 X 2 WERE GIVEN. BICARBONATE GIVEN. RIGHT INTERNAL JUGULAR VEIN LINE WAS SUCCESSFULLY PLACED. LABS WERE DRAWN WITH L FEMORAL STICK. EKG SHOWED A PEA (PULSELESS ELECTRICAL ACTIVITY) RHYTHM. THE ENTIRE CODE TEAM WAS PRESENT, INCLUDING PHYSICIAN, UI DEVELOPER WITH ANGULAR JS, NURSES, RESPIRATORY THERAPY, AND NURSE CLERICAL AIDE. ALL LIFE-SUPPORTIVE MEASURES WERE ATTEMPTED FOR A TOTAL OF 70 MINUTES (25 IN FIELD, 45 IN ER). PHYSICIAN INQUIRED OF ANY ADDITIONAL SUGGESTIONS OR INPUT FROM THE TEAM AND NONE WAS GIVEN, IT WAS ACKNOWLEDGED THAT ALL LIFE-SAVING MEASURES HAD BEEN REPEATEDLY ATTEMPTED AND EXHAUSTED. AT THIS TIME, THE CODE WAS CALLED. PHYSICIAN SPOKE IN PERSON WITH THE GIRLFRIEND OF THE PATIENT AND ON THE PHONE WITH THE BROTHER OF THE PATIENT. SOCIAL WORK SPENT EXTENSIVE TIME WITH THE GIRLFRIEND, PROVIDING COMFORT WHILE SHE GRIEVED. THE PATIENT WAS A VETRAN, SO THE V.A. WAS NOTIFIED. WE APPRECIATE MR. HUNTER'S SERVICE TO OUR NATION. THE [facility] TEAM WISH TO EXPRESS THEIR DEEPEST SYMPATHY AND CONDOLENCES TO THE FAMILY AND FRIENDS OF MR. GIOVANI HUNTER. Timing/Duration: 1-3 hours Severity: severe Activities at Onset: none Prior Chest Pain/Cardiac Workup: other - UNKNOWN Improving Factors: nothing Worsening Factors: nothing Allergies/Adverse Reactions: Allergies NO KNOWN ALLERGY Allergy (Verified 11/22/18 18:15) Home Medications: Ambulatory Orders Aspirin [Aspirin Adult Low Dose] 81 mg PO DAILY 11/22/18 Atorvastatin Calcium [Lipitor] 20 mg PO DAILY 11/22/18 Carvedilol 12.5 mg PO BID 11/22/18 Furosemide [Lasix] 80 mg PO DAILY 11/22/18 Lisinopril 5 mg PO DAILY 11/22/18 Methocarbamol 500 mg PO BID PRN 11/22/18 Albuterol Inhaler [Ventolin Hfa Inhaler] 2 puff INH RTQ4 PRN inh 11/26/18 Doxycycline Hyclate [Vibramycin] 100 mg PO BID #20 cap 11/26/18 Ipratropium/Albuterol [Duoneb] 3 ml NEB RTQID #120 vial 11/26/18 Tramadol HCl 50 - 100 mg PO Q6H PRN #30 tab 11/26/18 Review of Systems - Review of Systems Unable to Obtain Due To: condition, intubated Past Medical History (General) - Patient Medical History Hx Seizures: No Hx Stroke: No Hx Asthma: Yes Hx of COPD: Yes Hx Congestive Heart Failure: Yes Hx Pacemaker: No Hx Hypertension: Yes Hx Diabetes: No Hx Cancer: No Hx Hepatitis C: No Hx MRSA: No - Vaccination History Hx Influenza Vaccination: Yes - 2018 Hx Pneumococcal Vaccination: No - Social History Hx Tobacco Use: Yes Hx Chewing Tobacco Use: No Hx Alcohol Use: Yes Hx Substance Use: Yes Hx Substance Use Treatment: No Hx Depression: No Hx Physical Abuse: No Hx Emotional Abuse: No Hx Suspected Abuse: No Family Medical History - Family History Grandparents Family History: Unknown Hx Family;Other: ABDOMINAL AORTIC ANEURYSM-3.4 cm recently checked followed up every year Mother Living Status: Hx Family;Other: ABDOMINAL AORTIC ANEURYSM Physical Exam - Physical Exam Comments: HEAD TO TOE P.E. UNABLE TO BE OBTAINED, PT WAS IN CARDIAC AND RESPIRATORY ARREST AND WE WERE PERFORMING CPR UNTIL HE . Progress - Results/Orders Results/Orders: CARDIAC ENZYMES ELEVATED EXPECTED, GIVEN HE IS IN CARDIAC AND RESPIRATORY ARREST. PLEASE SEE HPI FOR DETAILED EXPLANATION OF THE CODE. Procedures - Intubation Intubation Method: orotracheal Tube Size (cm): 7.5 Breath Sounds after Intubation: equal Post Intubation Xray: No - CXR APPROPRIATELY WAS NOT OBTAINED, WE DID NOT WANT TO STOP COMPRESSIONS - Additional Procedures Additional Procedures: CPR - TOTAL OF 70 MINUTES (25 IN FIELD, 45 IN ER). Departure - Departure Clinical Impression: Cardiac arrest, Respiratory arrest Disposition: Home Medications: Ambulatory Orders Aspirin [Aspirin Adult Low Dose] 81 mg PO DAILY 11/22/18 Atorvastatin Calcium [Lipitor] 20 mg PO DAILY 11/22/18 Carvedilol 12.5 mg PO BID 11/22/18 Furosemide [Lasix] 80 mg PO DAILY 11/22/18 Lisinopril 5 mg PO DAILY 11/22/18 Methocarbamol 500 mg PO BID PRN 11/22/18 Albuterol Inhaler [Ventolin Hfa Inhaler] 2 puff INH RTQ4 PRN inh 11/26/18 Doxycycline Hyclate [Vibramycin] 100 mg PO BID #20 cap 11/26/18 Ipratropium/Albuterol [Duoneb] 3 ml NEB RTQID #120 vial 11/26/18 Tramadol HCl 50 - 100 mg PO Q6H PRN #30 tab 11/26/18 Critical Care Note - Critical Care Note Total Time (mins): 45 Comments: ACTIVE CPR RESUSCITATION FOR CARDIAC AND RESPIRATORY ARREST.
== END 2019-05-23 11:18 | disposition expired ==
LOC: ER 10:38
DX: I46.9 Cardiac arrest, cause unspecified (principal); J44.9 Chronic obstructive pulmonary disease, unspecified; I50.9 Heart failure, unspecified; I11.0 Hypertensive heart disease with heart failure; Z87.891 Personal history of nicotine dependence; Z79.82 Long term (current) use of aspirin; Z79.899 Other long term (current) drug therapy
CPT/HCPCS: 80048; 82550; 82553; 84484; 85025; 85610; 85730; 92950; 93005; J7060